=== PATIENT | female | born 1955 | race Caucasian/White ===

== ENCOUNTER 2020-11-18 11:20 | Day surgery (SDC) | payer OTHER ==
[~2020-11-18] VITALS: Ht 172.7 cm; Wt 158.6 kg
[~2020-11-18 11:20] MED LIST: SODIUM CHLORIDE 0.9% 1,000 ML ONE
[2020-11-18] MEDS ORDERED: LIDOCAINE/PF 2% 5 ML SYRINGE IVP ONE (11:21)
[2020-11-18] MEDS ORDERED: PROPOFOL 1% 20 ML VIAL IVP ONE (11:21)
[2020-11-18] MEDS ORDERED: SODIUM CHLORIDE 0.9% 1,000 ML IV ONE (11:30)
[2020-11-18 11:56] LABS: COVID AG,FIA SOURCE NASOPHARYNGEAL
[2020-11-18 12:23] LABS: GLUCOMETER DEV NAME(LOC) SDS.; GLUCOSE,POINT OF CARE 180 MG/DL (70-110)
== END 2020-11-18 15:00 | disposition home or self-care (01) ==
LOC: SURGERY 11:20
PROVIDERS: ATTEND Internal Medicine Gastroenterology
DX: R19.4 Change in bowel habit (principal); K57.30 Diverticulosis of large intestine without perforation or abscess without bleeding; I11.0 Hypertensive heart disease with heart failure; E11.9 Type 2 diabetes mellitus without complications; I50.9 Heart failure, unspecified; K75.81 Nonalcoholic steatohepatitis (NASH); M19.90 Unspecified osteoarthritis, unspecified site; E78.5 Hyperlipidemia, unspecified; Z87.891 Personal history of nicotine dependence; Z79.899 Other long term (current) drug therapy; Z98.890 Other specified postprocedural states; Z90.49 Acquired absence of other specified parts of digestive tract; E66.9 Obesity, unspecified; Z79.82 Long term (current) use of aspirin; Z88.6 Allergy status to analgesic agent; Z88.8 Allergy status to other drugs, medicaments and biological substances; Z80.0 Family history of malignant neoplasm of digestive organs; Z98.51 Tubal ligation status
CPT/HCPCS: 45378; 82962; 87426; C9803; J2704; J3490; J7030

== ENCOUNTER 2023-08-25 06:04 | Day surgery (SDC) | payer OTHER ==
[~2023-08-25] VITALS: Ht 172.7 cm; Wt 142.2 kg
[2023-08-25] MEDS ORDERED: ALBUTEROL SULFATE 2.5 MG/0.5 ML NEB SOLUTION NEB ONE (06:05)
[2023-08-25] MEDS ORDERED: BENZOCAINE 20% 50 MCG/SPRAY 57 GM TP ONE (06:05)
[2023-08-25] MEDS ORDERED: LIDOCAINE 4% 50 ML SOLUTION TP ONE (06:05)
[2023-08-25] MEDS ORDERED: LIDOCAINE 2% 11 ML JELLY TP ONE (06:05)
[2023-08-25] MEDS ORDERED: SODIUM CHLORIDE 0.9% 1,000 ML ONE (07:29)
[2023-08-25] MEDS: SODIUM CHLORIDE 0.9% 1,000 ML IV ONE (08:28)
[2023-08-25] MEDS ORDERED: GLIP5TAB16 PO (08:32)
[2023-08-25] MEDS ORDERED: OMEG-102 PO (08:32)
[2023-08-25] MEDS ORDERED: PRAZ2 PO (08:32)
[2023-08-25] MEDS ORDERED: ALBU18HF12 IH (08:32)
[2023-08-25] MEDS ORDERED: SEMA0.258 SQ (08:32)
[2023-08-25] MEDS ORDERED: BUSP5TAB20 PO (08:32)
[2023-08-25] MEDS ORDERED: MONT-35 PO (08:32)
[2023-08-25] MEDS ORDERED: FAMO20 PO (08:32)
[2023-08-25] MEDS ORDERED: BUDE10.7 IH (08:32)
[2023-08-25] MEDS ORDERED: PREG50 PO (08:32)
[2023-08-25] MEDS ORDERED: CETI-450 PO (08:32)
[2023-08-25] MEDS ORDERED: ROSU20TA73 PO (08:32)
[2023-08-25] MEDS ORDERED: CYAN100T45 PO (08:32)
[2023-08-25] MEDS ORDERED: METF-81 PO (08:32)
[2023-08-25] MEDS ORDERED: DULO-113 PO (08:32)
[2023-08-25] MEDS ORDERED: METO-558 PO (08:32)
[2023-08-25] MEDS ORDERED: MELA5TAB40 PO (08:32)
[2023-08-25] MEDS ORDERED: MORP15TA70 PO (08:32)
[2023-08-25] MEDS ORDERED: EMPA25TA3 PO (08:32)
[2023-08-25] MEDS ORDERED: FURO20 PO (08:32)
[2023-08-25] MEDS ORDERED: SITA100 PO (08:32)
[2023-08-25] MEDS ORDERED: MIDAZOLAM HCL 2 MG/2 ML VIAL ONE (08:57)
[2023-08-25] MEDS ORDERED: FentaNYL CITRATE PF 100 MCG/2 ML VIAL ONE (08:57)
[2023-08-25 09:01] LABS: GLUCOMETER DEV NAME(LOC) SDS.; GLUCOSE,POINT OF CARE 125 MG/DL (70-110)
[2023-08-25 09:15] VITALS: PULSE 59; RESP 17; O2SAT 100
[2023-08-25] MEDS: MethylPREDNISolone SOD SUCC 125 MG/2 ML VIAL IVP ONE (09:32)
== END 2023-08-25 11:10 | disposition home or self-care (01) ==
LOC: SURGERY 06:04
PROVIDERS: ATTEND Internal Medicine Critical Care Medicine
DX: R05.3 Chronic cough (principal); R06.2 Wheezing; R91.1 Solitary pulmonary nodule; J38.4 Edema of larynx; J98.09 Other diseases of bronchus, not elsewhere classified; J98.8 Other specified respiratory disorders; R49.0 Dysphonia; R04.2 Hemoptysis; J47.9 Bronchiectasis, uncomplicated; B37.0 Candidal stomatitis; J81.1 Chronic pulmonary edema; Z87.891 Personal history of nicotine dependence; Z79.899 Other long term (current) drug therapy; Z98.890 Other specified postprocedural states
CPT/HCPCS: 88112; 82962; 87206; 87101; 87220; 87070; 88305; 31623; 31624; 94640; 71045; 87015; J3010; J2250; J2930; Q9967; J7030; J7613; Z7610

== ENCOUNTER 2025-05-30 07:11 | Day surgery (SDC) | payer OTHER ==
[~2025-05-30] VITALS: Ht 172.7 cm; Wt 135.7 kg
[~2025-05-30 07:11] MED LIST changes: +ALBU18HF12 IH; +BUDE10.7 IH; +BUSP5TAB20 PO; +CETI10TA77 PO; +CYAN100T45 PO; +DULO60CA73 PO; +EMPA25TA3 PO; +FAMO20 PO; +FURO20TA5 PO; +GLIP5TAB16 PO; +MELA5TAB40 PO; +METF-81 PO; +METO-325 PO; +MONT-35 PO; +MORP15TA70 PO; +OMEG-102 PO; +PRAZ2 PO; +PREG50 PO; +ROSU20TA98 PO; +SEMA0.258 SQ; +SITA100 PO
[2025-05-30] MEDS ORDERED: MIDAZOLAM HCL 2 MG/2 ML VIAL ONE (08:10)
[2025-05-30] MEDS ORDERED: FentaNYL CITRATE PF 100 MCG/2 ML VIAL ONE (08:10)
[2025-05-30] MEDS ORDERED: FLUMAZENIL 0.1 MG/ML 5 ML VIAL IVP ONE (08:11)
[2025-05-30] MEDS ORDERED: EPINEPHrine 1:10,000 [1 MG/10 ML] SYRINGE ONE (08:11)
[2025-05-30] MEDS ORDERED: NALOXONE HCL 0.4 MG/ML VIAL ONE (08:11)
[2025-05-30] MEDS ORDERED: MELO-107 PO (08:35)
[2025-05-30] MEDS ORDERED: HYDR200T38 PO (08:35)
[2025-05-30] MEDS ORDERED: POTA-92 PO (08:35)
[2025-05-30 10:27] VITALS: PULSE 68; RESP 20; O2SAT 99
[2025-05-30 10:31] LABS: GLUCOMETER DEV NAME(LOC) SDS.; GLUCOSE,POINT OF CARE 112 MG/DL (70-110)
[2025-05-30] MEDS: SODIUM CHLORIDE 0.9% 1,000 ML IV ONE (11:15)
[2025-05-30] MEDS ORDERED: ALBUTEROL SULFATE 2.5 MG/0.5 ML NEB SOLUTION NEB ONE (15:29)
[2025-05-30] MEDS ORDERED: LIDOCAINE 2% 11 ML JELLY ONE (15:29)
[2025-05-30] MEDS ORDERED: BENZOCAINE 20% 50 MCG/SPRAY 57 GM ONE (15:29)
[2025-05-30] MEDS ORDERED: LIDOCAINE 4% 50 ML SOLUTION ONE (15:29)
== END 2025-05-30 13:15 | disposition home or self-care (01) ==
LOC: SURGERY 07:11
PROVIDERS: ATTEND Internal Medicine Critical Care Medicine
DX: J38.4 Edema of larynx (principal); B37.0 Candidal stomatitis; R05.3 Chronic cough; R06.2 Wheezing; R04.2 Hemoptysis; I44.0 Atrioventricular block, first degree; E11.9 Type 2 diabetes mellitus without complications; E78.00 Pure hypercholesterolemia, unspecified; Z79.84 Long term (current) use of oral hypoglycemic drugs; Z98.890 Other specified postprocedural states
CPT/HCPCS: 31623; 82962; 87206; 87101; 87220; 87070; 88108; 93005; 31624; 71045; 87015; J1200; J0169; J3010; J3490; J2250; J2919; J2312; J7030; J7613; Z7610